=== PATIENT | female | born 1950 | race Caucasian/White ===

== ENCOUNTER → 2016-10-08 | Outpatient (CLI) | payer OTHER | LOC: US 11:00 | DX: R20.2 Paresthesia of skin (principal); R55 Syncope and collapse; I65.23 Occlusion and stenosis of bilateral carotid arteries; Z91.041 Radiographic dye allergy status; Z91.040 Latex allergy status; Z91.013 Allergy to seafood; Z91.018 Allergy to other foods; Z88.8 Allergy status to other drugs, medicaments and biological substances | CPT/HCPCS: 93880 ==

== ENCOUNTER → 2016-11-26 | Outpatient (CLI) | payer OTHER ==
[2016-11-26 14:06] LABS: HEMOGLOBIN 13.7 gm/dl (12.3-15.3); RED BLOOD COUNT 4.41 M/UL (4.00-5.10); WHITE BLOOD COUNT 10.5 K/UL (4.5-11.0)
[2016-11-26 14:28] LABS: BUN/CREATININE RATIO 8 (0-10)
== END ==
LOC: LAB 12:55
PROVIDERS: Dermatology
DX: B17.0 Acute delta-(super) infection of hepatitis B carrier (principal); L40.0 Psoriasis vulgaris; L40.1 Generalized pustular psoriasis; J43.9 Emphysema, unspecified
CPT/HCPCS: 36415; 71020; 80053; 80074; 80076; 82248; 85027; 87390